=== PATIENT | male | born 1970 | race African-American/Black ===

== ENCOUNTER → 2017-06-06 | Outpatient (REF) ==
[~2017-06-06] MED LIST: FIORICET 325 MG1 TA1 PO; MEDROL 4MG DOSPA4 MG PO; NORCO 325 MG-51 TAB PO; ZOFRAN 4MG T4 MG/TAB PO; [UNRECOGNIZED DRUG - OTHER] PO
== END ==
LOC: ZLAB.WCH 17:36
DX: Z01.89 Encounter for other specified special examinations (principal)
CPT/HCPCS: G0103